=== PATIENT | female | born 2000 | race Two or more races ===

== ENCOUNTER 2023-12-13 01:30 | Emergency (ER) | payer OTHER ==
[~2023-12-13] VITALS: Ht 162.6 cm; Wt 81.0 kg
[2023-12-13 02:09] VITALS: BP 129/81; PULSE 75; RESP 16; TEMP 98.3
== END 2023-12-13 02:56 | disposition home or self-care (01) ==
LOC: EMS 01:32
DX: S40.022A Contusion of left upper arm, initial encounter (principal); S40.812A Abrasion of left upper arm, initial encounter; Y08.89XA Assault by other specified means, initial encounter; Y93.89 Activity, other specified; Y92.89 Other specified places as the place of occurrence of the external cause; Y99.8 Other external cause status
CPT/HCPCS: 99283